=== PATIENT | female | born 1975 | race Two or more races ===

== ENCOUNTER 2023-07-04 15:49 | Emergency (ER) | payer OTHER ==
[~2023-07-04] VITALS: Ht 152.4 cm; Wt 60.4 kg
[2023-07-04] MEDS ORDERED: HYDROmorphone HCL 2 MG/ML VL/or syr IM ONE (16:15)
[2023-07-04 16:55] VITALS: BP 128/86; PULSE 88; RESP 18; TEMP 97.8; O2SAT 100
[2023-07-04 17:15] LABS: Basophils # (auto) 0.2 10 ^3/uL (0-0.2); Basophils % (auto) 4.1 % (0.0-2.0); Eosinophils # (auto) 0.4 10 ^3/uL (0-0.8); Eosinophils % (auto) 6.4 % (0.0-7.0); Hemoglobin 12.8 g/dL (12.2-16.2); Lymphocytes # (auto) 1.2 10 ^3/uL (0.4-5.4); Lymphocytes % (auto) 21.9 % (10.0-50.0); Mean Corpuscular Hemoglobin 31.3 pg (28.0-32.0); Mean Corpuscular Hgb Conc. 32.9 g/dL (32.0-36.0); Mean Corpuscular Volume 95.4 fL (80.0-100.0); Monocytes # (auto) 0.3 10 ^3/uL (0-1.3); Monocytes % (auto) 4.6 % (0.0-12.0); Neutrophils # (auto) 3.6 10 ^3/uL (1.6-8.6); Red Blood Cells 4.09 10^6/uL (4.0-5.20); Red Cell Distribution Width 14.1 % (11.8-14.3); White Blood Cell 5.7 10^3/uL (4.4-10.8)
[2023-07-04 17:27] LABS: Alanine Aminotransferase 18 U/L (7-40); Alkaline Phosphatase 61 U/L (46-116); Anion Gap 5 (5-15); Aspartate Aminotransferase 19 U/L (13-40); BUN/Creatinine Ratio 12.1 (10.0-20.0); Bilirubin, Total 0.5 mg/dL (0.2-1.0); Blood Urea Nitrogen 7 mg/dL (9-23); Calcium 8.6 mg/dL (8.5-10.1); Carbon Dioxide 29 mmol/L (20-30); Chloride 106 mmol/L (98-107); Glucose 84 mg/dL (74-106); Potassium 3.6 mmol/L (3.5-5.1); Sodium 140 mmol/L (136-145); Total Protein 7.1 g/dL (5.7-8.2)
[2023-07-04] MEDS ORDERED: DexAMETHasone SOD PHOS 10MG/1ML VIAL INJ IM ONE (17:45)
[2023-07-04] MEDS ORDERED: ZOFR4T PO ×3 (17:59→18:17)
[2023-07-04] MEDS ORDERED: SUMA100T2 PO ×3 (17:59→18:17)
[2023-07-04] MEDS ORDERED: AMLO1TAB23 PO (18:17)
[2023-07-04 18:57] LABS: Rapid Influenza A Negative (Negative); Rapid Influenza B Negative (Negative)
[2023-07-04 18:58] LABS: COVID19 ANTIGEN SOFIA FIA NEGATIVE (NEGATIVE)
[2023-07-06] MEDS ORDERED: LORazepam 0.5 MG TAB PO ONE (01:00)
== END 2023-07-04 19:03 | disposition home or self-care (01) ==
LOC: EEVIPCON 15:49 → ER 15:49
DX: G43.909 Migraine, unspecified, not intractable, without status migrainosus (principal); Z20.822 Contact with and (suspected) exposure to COVID-19
CPT/HCPCS: 36415; 70450; 80053; 85025; 87426; 87804; 96372; 99285; J1100; J1170

== ENCOUNTER 2023-08-06 03:10 | Emergency (ER) | payer OTHER ==
[~2023-08-06] VITALS: Ht 152.4 cm; Wt 59.0 kg
[~2023-08-06 03:10] MED LIST: AMLO1TAB23 PO; SUMA100T2 PO; ZOFR4T PO
[2023-08-06] MEDS ORDERED: MORPHINE SULFATE 4 MG/ML SYR/VIAL IV ONE (03:30)
[2023-08-06] MEDS ORDERED: MAALOX PLUS or MAALOX 30 ML PO ONE (03:30)
[2023-08-06] MEDS ORDERED: LIDOCAINE VISCOUS 2% 15ML UD PO ONE (03:30)
[2023-08-06] MEDS ORDERED: SODIUM CHLORIDE 0.9% 1,000 ML IV ONE (03:30)
[2023-08-06] MEDS ORDERED: ONDANSETRON HCL 4 MG/2 ML VIAL IV ONE (03:30)
[2023-08-06] MEDS ORDERED: METO-281 PO (05:06)
[2023-08-06] MEDS ORDERED: ZOFR4T PO (05:06)
[2023-08-06] MEDS ORDERED: SUMA50TA2 PO (05:06)
[2023-08-06 05:28] VITALS: BP 130/84; PULSE 80; RESP 16; TEMP 98.7; O2SAT 97
[2023-08-06] MEDS ORDERED: HYDR25TA5 PO (23:32)
== END 2023-08-06 05:30 | disposition home or self-care (01) ==
LOC: ER 03:10 → EEVIPCON 03:10 → ER 05:20
DX: G43.909 Migraine, unspecified, not intractable, without status migrainosus (principal)
CPT/HCPCS: 96361; 96374; 96375; 99284; J2270; J2405; J7030